=== PATIENT | male | born 1970 | race African-American/Black ===

== ENCOUNTER → 2023-11-14 | Emergency (ER) | payer BC ==
[~2023-11-14] VITALS: Ht 175.3 cm; Wt 104.3 kg
[~2023-11-14] MED LIST: LORAZEPAM 1 MG TABLET ONE
[2023-11-14] MEDS: LORAZEPAM 1 MG TABLET PO ONE (14:31)
[2023-11-14 15:10] VITALS: BP 140/82; TEMP 97.8; O2SAT 99
== END | disposition left against medical advice (07) ==
LOC: ER 14:04
DX: F41.9 Anxiety disorder, unspecified (principal); F14.129 Cocaine abuse with intoxication, unspecified; R94.31 Abnormal electrocardiogram [ECG] [EKG]